=== PATIENT | female | born 2000 | race Caucasian/White ===

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

== ENCOUNTER 2022-01-05 15:20 | Emergency (ER) | payer MEDICAID ==
[2022-01-05] MEDS ORDERED: TETANUS,DIPH,PERTUSS(ACELL) VACCINE 0.5 ML SYRINGE IM ONE (16:38)
--- NOTE | 2022-01-05 17:04 | XRay Report ---
RIGHT WRIST 2 VIEWS INDICATION / CLINICAL INFORMATION: PAIN SP FALL. COMPARISON: None available. FINDINGS: BONES / JOINT(S): No acute fracture or subluxation. No significant arthritis. SOFT TISSUES: No significant abnormality. ADDITIONAL FINDINGS: None. Signer Name: Flako Wells MD Signed: 01/05/2022 5:00 PM Workstation Name: [id number]
--- NOTE | 2022-01-05 17:06 | Emergency Department Report ---
ED Fall HPI - General Chief Complaint: Extremity Injury, Upper Stated Complaint: RT WRIST INJURY/BREAST INJURY Time Seen by Provider: 01/05/22 16:38 Source: patient Mode of arrival: Ambulatory - History of Present Illness Initial Comments: 21 YO COMES TO ER SP FALL FROM [place] SEVERAL DAYS AGO CO RIGHT WRIST PAIN AND LEFT SIDE ABRASION NO LOC AMBULATORY AND NEURO INTACT MD Complaint: fall -: Sudden, days(s) Fall From: standing Fall Witnessed: yes, by family Place Fall Occurred: home Loss of Consciousness: none Prolonged Down Time?: no Symptoms Prior to Fall: none Severity: mild Severity scale (0 -10): 2 Quality: aching Context: tripped/slipped Associated Symptoms: denies - Related Data Previous Rx's Medication Instructions Recorded Last Taken Type Ibuprofen [Motrin] 800 mg PO Q8HR PRN #30 tablet 01/05/22 Unknown Rx Silver Sulfadiazine [Ssd] 400 gm TP BID #1 each 01/05/22 Unknown Rx Allergies Allergy/AdvReac Type Severity Reaction Status Date / Time No Known Allergies Allergy Verified 12/17/19 13:59 ED Review of Systems ROS: Stated complaint: RT WRIST INJURY/BREAST INJURY Other details as noted in HPI Comment: All other systems reviewed and negative ED Past Medical Hx - Past Medical History Previous Medical History?: No - Surgical History Past Surgical History?: Yes Additional Surgical History: ET tubes in past none now - Family History Family history: no significant - Social History Smoking Status: Never Smoker Substance Use Type: None - Medications Home Medications: Home Medications Medication Instructions Recorded Confirmed Last Taken Type Ibuprofen [Motrin] 800 mg PO Q8HR PRN #30 tablet 01/05/22 Unknown Rx Silver Sulfadiazine [Ssd] 400 gm TP BID #1 each 01/05/22 Unknown Rx ED Physical Exam - General Limitations: No Limitations General appearance: alert, in no apparent distress - Head Head exam: Present: atraumatic, normocephalic - Eye Eye exam: Present: normal appearance - ENT ENT exam: Present: mucous membranes moist - Neck Neck exam: Present: normal inspection - Respiratory Respiratory exam: Present: normal lung sounds bilaterally. Absent: respiratory distress - Cardiovascular Cardiovascular Exam: Present: regular rate, normal rhythm. Absent: systolic murmur, diastolic murmur, rubs, gallop - GI/Abdominal GI/Abdominal exam: Present: soft, normal bowel sounds - Extremities Exam Extremities exam: Present: normal inspection - Back Exam Back exam: Present: normal inspection - Neurological Exam Neurological exam: Present: alert, oriented X3 - Psychiatric Psychiatric exam: Present: normal affect, normal mood - Skin Skin exam: Present: warm, dry, normal color, other. Absent: rash - Expanded Skin Exam Expanded 1 - ROAD RASH ED Course Vital Signs 01/05/22 15:44 Temperature 97.9 F Pulse Rate 86 Respiratory 18 Rate Blood Pressure 110/67 [Right] O2 Sat by Pulse 100 Oximetry ED Medical Decision Making - Radiology Data Radiology results: report reviewed, image reviewed NAP - Medical Decision Making TDAP GIVEN WOUND CARE GIVEN XRAY NOTED Vital Signs 01/05/22 15:44 Temperature 97.9 F Pulse Rate 86 Respiratory 18 Rate Blood Pressure 110/67 [Right] O2 Sat by Pulse 100 Oximetry DC HOME WITH DC PLAN OF CARE INCLUDING DIET, MEDS, ACTIVITY AND FOLLOW UP. SHE VERBALIZES UNDERSTANDING OF PLAN OFCARE. - Differential Diagnosis RO FX WRIST Critical care attestation.: If time is entered above; I have spent that time in minutes in the direct care of this critically ill patient, excluding procedure time. ED Disposition Clinical Impression: Contusion, Abrasion Fall Qualifiers: Encounter type: initial encounter Qualified Code(s): W19.XXXA - Unspecified fall, initial encounter Disposition: HOME / SELF CARE / HOMELESS Is pt being admited?: No Does the pt Need Aspirin: No Condition: Stable Additional Instructions: XRAY NORMAL TWICE PER DAY REMOVE OLD CREAM AND PLACE NEW CREAM ON WOUNDS. KEEP COVERED DO THIS UNTIL IT HEALS TYLENOL CAN BE ADDED FOR PAIN FOLLOW UP WITH PCP FOR RECHECK NEXT WEEK REFERRAL BELOW DIET AND ACTIVITY TOLERATED Prescriptions: Ibuprofen [Motrin] 800 mg PO Q8HR PRN #30 tablet PRN Reason: Pain, Moderate (4-6) Silver Sulfadiazine [Ssd] 400 gm TP BID #1 each Referrals: SEVEN HUIZAR MD [Staff Physician] - 3-5 Days Forms: Work/School Release Form(ED) Time of Disposition: 17:06
[2022-01-05 18:45] VITALS: BP 135/77
== END 2022-01-05 18:44 | disposition home or self-care (01) ==
LOC: ED 15:20
DX: S60.211A Contusion of right wrist, initial encounter (principal); T14.8XXA Other injury of unspecified body region, initial encounter; W19.XXXA Unspecified fall, initial encounter; Y93.89 Activity, other specified; Y92.89 Other specified places as the place of occurrence of the external cause; Y99.8 Other external cause status
CPT/HCPCS: 90471; 90715; 99283